=== PATIENT | male | born 1960 | race Caucasian/White ===

== ENCOUNTER 2019-06-02 09:00 | Inpatient (IN) | payer BC ==
[~2019-06-02] VITALS: Ht 185.4 cm; Wt 83.7 kg
[2019-06-02 10:07] VITALS: BP 154/79
[2019-06-02 11:06] LABS: ANION GAP 6 mmol/L (5-15); CALCIUM 8.1 mg/dL (8.5-10.1); CHLORIDE 112 mmol/L (98-107); CHOLESTEROL, TOTAL 115 mg/dL (140-239); CREATININE 1.12 mg/dL (0.7-1.3)
[2019-06-02 11:16] LABS: CHOL/HDL RATIO 2.1; FREE T4 (FREE THYROXINE) 1.05 ng/dL (0.76-1.46); HDL CHOL % 49 % (26-37); HDL CHOLESTEROL (DIRECT) 56 mg/dL (40-60); LDL CHOLESTEROL,CALCULATED 40 mg/dL (54-169); LDL/HDL RATIO 0.7 (0.5-3.0); TRIGLYCERIDES 95 mg/dL (50-200); VLDL CHOLESTEROL 19 mg/dL (0-25)
[2019-06-02] MEDS ORDERED: PLEASE ENTER HEIGHT AND WEIGHT MC SCH (11:30)
[2019-06-02] MEDS ORDERED: PLEASE ENTER ALLERGIES MC SCH (11:30)
[2019-06-02] MEDS ORDERED: LISI30TA4 PO (11:51)
[2019-06-02] MEDS ORDERED: APIX5TAB PO (11:51)
[2019-06-02] MEDS ORDERED: INSU100C SQ-INSULIN (11:51)
[2019-06-02] MEDS ORDERED: INSU100V8 SQ (11:51)
[2019-06-02] MEDS ORDERED: AMLO10TA8 PO (12:11)
[2019-06-02] MEDS ORDERED: LISI40TA PO (12:11)
[2019-06-02] MEDS ORDERED: ATOR20TA37 PO (12:11)
[2019-06-02] MEDS ORDERED: LISI-170 PO (12:11)
[2019-06-02] MEDS ORDERED: INSULIN GLARGINE HUM REC ANLOG 24 UNIT SQ SCH (13:00)
[2019-06-02] MEDS: AMIODARONE 200 MG TABLET PO SCH ×3 (13:14→20:57)
[2019-06-02 13:23] VITALS: BP 160/76
[2019-06-02] MEDS ORDERED: NAPROXEN 500 MG TABLET PO PRN (19:30)
[2019-06-02 20:41] VITALS: BP 156/91
[2019-06-02] MEDS: APIXABAN 5 MG TABLET PO SCH (20:57)
[2019-06-02] MEDS: ATORVASTATIN 20 MG TABLET PO SCH (20:59)
[2019-06-02] MEDS: LISINOPRIL 20 MG TABLET PO SCH (21:00)
[2019-06-02] MEDS: INSULIN GLARGINE 100 UNITS/ML, PEN SQ-INSULIN SCH (21:00)
[2019-06-02] MEDS: NAPROXEN 250 MG TABLET PO PRN ×2 (21:14→21:15)
[2019-06-03 01:18] VITALS: BP 138/74
[2019-06-03 07:50] VITALS: BP 156/91
[2019-06-03] MEDS: LISINOPRIL 40 MG TABLET PO SCH (09:29)
[2019-06-03] MEDS: AMLODIPINE 10 MG TAB PO SCH (09:29)
[2019-06-03] MEDS: APIXABAN 5 MG TABLET PO SCH ×2 (09:30→19:47)
[2019-06-03] MEDS: AMIODARONE 200 MG TABLET PO SCH ×2 (09:30→19:47)
[2019-06-03 14:03] VITALS: BP 130/81
[2019-06-03] MEDS: LISINOPRIL 20 MG TABLET PO SCH (19:47)
[2019-06-03] MEDS: ATORVASTATIN 20 MG TABLET PO SCH (19:47)
[2019-06-03] MEDS: INSULIN GLARGINE 100 UNITS/ML, PEN SQ-INSULIN SCH (19:47)
[2019-06-03 20:22] VITALS: BP 138/76
[2019-06-04 02:15] VITALS: BP 128/77
[2019-06-04 08:32] VITALS: BP 133/86
[2019-06-04] MEDS ORDERED: AMIO200T42 PO (09:26)
[2019-06-04] MEDS: APIXABAN 5 MG TABLET PO SCH (09:53)
[2019-06-04] MEDS: AMLODIPINE 10 MG TAB PO SCH (09:53)
[2019-06-04] MEDS: LISINOPRIL 40 MG TABLET PO SCH (09:53)
[2019-06-04] MEDS: AMIODARONE 200 MG TABLET PO SCH (09:53)
== END 2019-06-04 12:45 | disposition home or self-care (01) | DRG 309 ==
LOC: 5SO 09:35
PROVIDERS: ADMIT Internal Medicine Cardiovascular Disease; ATTEND Internal Medicine Cardiovascular Disease
DX: I48.0 Paroxysmal atrial fibrillation (principal); D68.69 Other thrombophilia; E10.9 Type 1 diabetes mellitus without complications; I10 Essential (primary) hypertension; Z86.73 Personal history of transient ischemic attack (TIA), and cerebral infarction without residual deficits; Z87.891 Personal history of nicotine dependence
CPT/HCPCS: 36415; 71046; 80048; 80061; 84439; 84443; 85014; 85018; 93005; 93306; G0378

== ENCOUNTER 2019-06-24 07:21 | Emergency (ER) | payer BC, OTHER ==
[~2019-06-24] VITALS: Ht 185.4 cm; Wt 84.0 kg
[~2019-06-24 07:21] MED LIST: AMIO200T42 PO; AMLO10TA8 PO; APIX5TAB PO; ATOR20TA37 PO; INSU100C SQ-INSULIN; INSU100V8 SQ; LISI-170 PO; LISI30TA4 PO; LISI40TA PO
--- NOTE | 2019-06-24 08:08 | NUR ---
TASK RN: PT CURRENTLY IN CT.
[2019-06-24 08:12] LABS: BASOPHILS # (AUTO) 0.02 x10^3/uL (0-0.1); BASOPHILS % (AUTO) 0 % (0-1); EOSINOPHILS # (AUTO) 0.17 x10^3/uL (0-0.4); EOSINOPHILS % (AUTO) 2 % (1-7); LYMPHOCYTES # (AUTO) 0.85 x10^3/uL (1-3.4); LYMPHOCYTES % (AUTO) 7 % (22-44); MD NO; MEAN CORPUSCULAR HEMOGLOBIN 30.4 pg (27.5-34.5); MEAN CORPUSCULAR HGB CONC 33.8 g/dL (33.2-36.2); MEAN CORPUSCULAR VOLUME 90.1 fL (81-97); MEAN PLATELET VOLUME 10.1 fL (7.4-10.4); MONOCYTES # (AUTO) 0.69 x10^3/uL (0.2-0.8); MONOCYTES % (AUTO) 6 % (2-9); NEUTROPHILS # (AUTO) 10.18 x10^3/uL (1.8-6.8); NEUTROPHILS % (AUTO) 85 % (42-75); PLATELET COUNT 141 x10^3/uL (130-400); RED BLOOD COUNT 5.01 x10^6/uL (4.38-5.82)
[2019-06-24 08:16] LABS: ALANINE AMINOTRANSFERASE 46 U/L (12-78); ALBUMIN 3.1 g/dL (3.4-5.0); ANION GAP 7 mmol/L (5-15); CALCIUM 7.6 mg/dL (8.5-10.1); CHLORIDE 112 mmol/L (98-107); CREATININE 1.61 mg/dL (0.7-1.3)
[2019-06-24 08:20] LABS: ALKALINE PHOSPHATASE 114 U/L (45-117); BILIRUBIN,TOTAL 0.5 mg/dL (0.2-1.0); TOTAL PROTEIN 5.9 g/dL (6.4-8.2); TROPONIN I < 0.015 ng/mL (0.000-0.045)
[2019-06-24] MEDS ORDERED: CEFTRIAXONE PMX 1GM/50ML 50 ML IVPB ONE (09:00)
--- NOTE | 2019-06-24 09:00 | NUR ---
PT AWARE OF INTENTION TO GIVE IV ANTIBIOTICS AND DISCHARGE. PT RESTING ON GURNEY, NO DISTRESS
[2019-06-24] MEDS ORDERED: CEFTRIAXONE PMX 1GM/50ML 50 ML ONE (09:20)
[2019-06-24] MEDS ORDERED: AZITHROMYCIN 500 MG in SODIUM CHLORIDE 0.9% 250 ML IV ONE (10:00)
--- NOTE | 2019-06-24 10:05 | NUR ---
UOB AND AMBULATED TO BATHROOM WITHOUT ASSISTANCE BEFORE SECOND ANTIBIOTIC STARTED.
[2019-06-24 11:13] VITALS: BP 132/84
== END 2019-06-24 11:15 | disposition home or self-care (01) ==
LOC: ED 09:24
DX: J18.0 Bronchopneumonia, unspecified organism (principal); R55 Syncope and collapse; R07.89 Other chest pain; I48.91 Unspecified atrial fibrillation; I25.2 Old myocardial infarction
CPT/HCPCS: 36415; 70450; 71045; 80053; 83605; 83690; 84484; 85025; 87040; 93005; 96365; 96367; 99284; J0456; J0696; J7050

== ENCOUNTER 2019-07-05 13:23 | Emergency (ER) | payer OTHER ==
[~2019-07-05] VITALS: Ht 185.4 cm; Wt 87.0 kg
--- NOTE | 2019-07-05 13:51 | NUR ---
pt biba after dizziness, sudden onset at 1130 this am while at work. pt denies syncope or fall. pt has hx DM1, fsbs 85 on arrival per pt's implanted glucometer. pt states "that is lower than my normal, my dizziness started when my blood sugar dropped this morning (to level 80), I had some sugar but it didn't come up like it usually does." neuro intact. pt denies cp/sob. pt has had recent dx pna, taking PO meds as prescribed by PCP. EKG taken on arrival by EDT, reviewed by MD Eduardo. pt on all monitors, sinus mary rate 50s on monitor with no ectopy. ED Law at bedside.
--- NOTE | 2019-07-05 14:07 | NUR ---
PT PROVIDED WITH CRACKERS AND JUICE WITH EDMD LAW'S OK.
[2019-07-05 14:25] LABS: BASOPHILS # (AUTO) 0.04 x10^3/uL (0-0.1); BASOPHILS % (AUTO) 0 % (0-1); EOSINOPHILS # (AUTO) 0.16 x10^3/uL (0-0.4); EOSINOPHILS % (AUTO) 2 % (1-7); LYMPHOCYTES # (AUTO) 0.97 x10^3/uL (1-3.4); LYMPHOCYTES % (AUTO) 10 % (22-44); MD NO; MEAN CORPUSCULAR HEMOGLOBIN 30.1 pg (27.5-34.5); MEAN CORPUSCULAR VOLUME 91.1 fL (81-97); MEAN PLATELET VOLUME 10.6 fL (7.4-10.4); MONOCYTES # (AUTO) 0.58 x10^3/uL (0.2-0.8); MONOCYTES % (AUTO) 6 % (2-9); NEUTROPHILS # (AUTO) 7.56 x10^3/uL (1.8-6.8); NEUTROPHILS % (AUTO) 81 % (42-75); PLATELET COUNT 170 x10^3/uL (130-400); RED BLOOD COUNT 5.19 x10^6/uL (4.38-5.82); RED CELL DISTRIBUTION WIDTH 13.8 % (9.4-14.8)
[2019-07-05] MEDS ORDERED: ONDANSETRON 2MG/ML, 2ML ONE (14:27)
[2019-07-05] MEDS ORDERED: ONDANSETRON ODT 4 MG PO ONE (14:30)
[2019-07-05 14:35] LABS: ALBUMIN 3.9 g/dL (3.4-5.0); ANION GAP 5 mmol/L (5-15); CALCIUM 8.1 mg/dL (8.5-10.1); CHLORIDE 116 mmol/L (98-107); CREATININE 1.42 mg/dL (0.7-1.3)
--- NOTE | 2019-07-05 14:50 | NUR ---
pt reports neck stiffness and pain, pt states this is baseline but worse than usual. Law notified. pt also nauseated and dry heaving, law informed. pt a&o, resps even and unlabored, sinus mary rate 50s on monitor with no ectopy. ordered zofran and head CT. awaiting radiology and dispo at this time.
[2019-07-05] MEDS ORDERED: ONDANSETRON 2MG/ML, 2ML IVPush ONE (15:00)
[2019-07-05 15:01] LABS: TROPONIN I < 0.015 ng/mL (0.000-0.045)
--- NOTE | 2019-07-05 15:10 | NUR ---
PT IN CT. REPORT GIVEN TO LORENE GÓMEZ.
[2019-07-05] MEDS ORDERED: METOCLOPRAMIDE 5 MG/ML, 2ML IVPush ONE (15:30)
[2019-07-05] MEDS ORDERED: METOCLOPRAMIDE 5 MG/ML, 2ML ONE (15:56)
[2019-07-05 16:00] VITALS: BP 159/69
--- NOTE | 2019-07-05 16:07 | NUR ---
REPEAT EKG OBTAINED, PLAN FOR REGLAN FOR NAUSEA. PT SLEEPING AT MOMENT.
== END 2019-07-05 17:13 | disposition home or self-care (01) ==
LOC: ED 16:25
DX: R42 Dizziness and giddiness (principal); R11.2 Nausea with vomiting, unspecified; R00.1 Bradycardia, unspecified; I48.91 Unspecified atrial fibrillation
CPT/HCPCS: 36415; 70450; 71045; 80048; 82040; 84484; 85025; 93005; 96374; 96375; 99284; J2405; J2765